=== PATIENT | male | born 1990 | race Two or more races ===

== ENCOUNTER 2023-10-25 18:56 | Emergency (ER) | payer MEDICAID, SELFPAY ==
[2023-10-25 19:01] VITALS: BP 125/83
[2023-10-25 19:04] VITALS: BP 125/83
[2023-10-25 19:10] LABS: Glucose - Point of Care 191 mg/dl (70-99)
[2023-10-25] MEDS: NARCAN 2 MG NASAL ×2 (19:23→19:54)
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
[2023-10-25] MEDS: NARCAN 2 MG IM (20:13)
[2023-10-25] MEDS: HALDOL 5 MG IM (20:36)
[2023-10-25] MEDS: ATIVAN 2 MG IM ×2 (20:42→21:44)
[2023-10-25 20:56] LABS: % Basophils 0.3 % (0-2); % Eosinophils 0.9 % (0-6); % Immature Granulocytes 0.1 % (0-0.5); % Lymphocytes 18.2 % (20.5-51.1); % Monocytes 4.5 % (1.7-9.3); Absolute Eosinophils 0.1 10^3/uL (0-0.7); Absolute Lymphocytes 1.3 10^3/uL (1.2-3.4); Absolute Monocytes 0.3 10^3/uL (0.1-0.6); Absolute Neutrophils 5.3 10^3/uL (1.4-6.5); Hematocrit 41.6 % (39.0-52.0); Hemoglobin 14.8 g/dL (13.0-18.0); Mean Corp Hgb Conc. 35.6 g/dL (33.0-37.0); Mean Corpuscular Hgb 29.1 pg (27.0-31.0); Mean Corpuscular Volume 81.9 fL (80.0-94.0); Mean Platelet Volume 11.7 fL (7.4-10.4); Nucleated Red Blood Cells % 0 % (-); Platelet Count 123 10^3/uL (130-400); Red Blood Cell Count 5.08 10^6/uL (4.70-6.10); Red Cell Dist. Width 13.3 % (11.5-14.5); White Blood Cell Count 6.9 10^3/uL (4.8-10.8)
[2023-10-25 21:14] VITALS: BP 105/70
[2023-10-25 21:40] LABS: ALT (SGPT) 26 U/L (0-50); AST (SGOT) 73 U/L (17-59); Acetaminophen < 10 ug/ml (10-30); Alcohol None Detected; Alkaline Phosphatase 44 U/L (38-126); Blood Urea Nitrogen 13 mg/dl (9-20); Calcium 9.9 mg/dl (8.4-10.2); Carbon Dioxide 25 mmol/L (22-30); Chloride 103 mmol/L (98-107); Creatine Phosphokinase 1342 U/L (55-170); Glucose 108 mg/dl (70-99); Potassium 4.5 mmol/L (3.5-5.1); Salicylate < 1.0 mg/dl (2.0-20.0); Sodium 142 mmol/L (135-145); Total Protein 7.4 g/dl (6.3-8.2); eGFR > 60.00
[2023-10-25 22:00] VITALS: BP 110/75
[2023-10-25 23:00] VITALS: BP 109/69
[2023-10-26] VITALS: BP 114/71
[2023-10-26 01:00] VITALS: BP 103/71
== END 2023-10-26 01:15 | disposition home or self-care (01) ==
LOC: EMR 18:56
PROVIDERS: EMERGENCY PHYSICIAN Emergency Medicine
DX: T40.1X1A Poisoning by heroin, accidental (unintentional), initial encounter (principal)
CPT/HCPCS: 99285; 96374; 96372 ×4; 71045; 80053; 80143; 80179; 82077; 82550; 82962; 85025; 93005